=== PATIENT | female | born 1965 | race Caucasian/White ===

== ENCOUNTER 2021-01-31 18:23 | Emergency (ER) | payer BC ==
[~2021-01-31] VITALS: Ht 170.2 cm; Wt 85.9 kg
--- NOTE | 2021-01-31 18:30 | PHYS DOC ---
Past History Past Medical History: Hypertension General Adult HPI: HPI: ".. I ve had nose bleds before.. but this is a really good one.. I just can't get it to stop...'"".. It all started after I was blowing my nose.." Patient is a 55 year old female who presents with complaints of epistaxis primarily on right side. Patient however states blood is also coming out on left side of her nose after she has been pinching it to stop bleeding. Patient does have a history of previous nosebleeds. Patient has been taking aspirin for her chronic neck pain. Patient denies any history of coagulopathy or use of coagulopathic drugs. No history of [id number] herbal medicines. No hist ory of recent nasal trauma. Has had some upper respiratory congestion and cold symptoms recently. But no fever. No history of travel. No specific ill contacts. Patient does have elevated blood pressure on presentation and states that she has been told before that her pressure has been somewhat borderline. Patient normally follows with Dr. Castillo. Review of Systems: Review of Systems: Constitutional: Denies fever or chills Eyes: Denies change in visual acuity HENT: Complains of epistaxis Respiratory: Denies cough or shortness of breath Cardiovascular: Denies chest pain or edema GI: Denies abdominal pain, nausea, vomiting, bloody stools or diarrhea : Denies dysuria Musculoskeletal: Denies back pain or joint pain Integument: Denies rash Neurologic: Denies headache, focal weakness or sensory changes Endocrine: Denies polyuria or polydipsia Lymphatic: Denies swollen glands Psychiatric: Denies depression or anxiety Family History: Family History: Noncontributory to presentation Current Medications: Current Meds: See nursing for home meds Allergies: Allergies: Allergic to penicillins Physical Exam: PE: Constitutional: in acute distress, non-toxic appearance. [] HENT: Normocephalic, atraumatic, bilateral external ears normal, oropharynx moist, no oral exudates, nose active bleeding from [place] area on right naris. Does have bleeding down rectal pharynx. There is overflow bleeding to the left naris. Eyes: PERRLA, EOMI, conjunctiva normal, no discharge. [] Neck: Normal range of motion, no tenderness, supple, no stridor. [] Cardiovascular:Heart rate regular rhythm, no murmur [] Lungs & Thorax: Bilateral breath sounds equal apex with some scattered wheezes on auscultation [] Abdomen: Bowel sounds normal, soft, no tenderness, no masses, no pulsatile masses. [] Skin: Warm, dry, no erythema, no rash. [] No petechiae or excessive bruising appreciated Back: No tenderness, no CVA tenderness. [] Extremities: No tenderness, no cyanosis, no clubbing, ROM intact, no edema. Arthritic changes. Neurologic: Alert and oriented X 3, normal motor function, normal sensory funct ion, no focal deficits noted. [] Psychologic: Affect anxious,, judgement normal, mood normal. [] EKG: EKG: [] Radiology/Procedures: Radiology/Procedures: [] Heart Score: C/O Chest Pain: N/A Risk Factors: Risk Factors: DM, Current or recent (<one month) smoker, HTN, HLP, family history of CAD, obesity. Risk Scores: Score 0 - 3: 2.5% MACE over next 6 weeks - Discharge Home Score 4 - 6: 20.3% MACE over next 6 weeks - Admit for Clinical Observation Score 7 - 10: 72.7% MACE over next 6 weeks - Early Invasive Strategies Course & Med Decision Making: Course & Med Decision Making Pertinent Labs and Imaging studies reviewed. (See chart for details) Procedure note: Discussed options of treatment with patient. Had patient a clear excessive cough by blowing. Occasion of a 50-50 mix of Afrin and cocaine by MAD applicat or. Also application of bacitracin to right nare. Gentle pressure. Patient appeared to have good hemostasis over [place] area. Did reapply 1 dose of Afrin and cocaine by MAD. Patient monitored for additional 2 hours and no breakthrough bleeding noted. Patient also had application of clonidine 0.2 and clonidine patch for her accelerated hypertension. Patient declined packing at this time. Patient to apply small amount of Polysporin to each nare 4 times a day. Follow-up primary care. Patient to leave on the clonidine patch on until follow-up with Dr. Castillo. Patient avoid NSAIDs. May take Tylenol for pain. Patient issued a mixture of cocaine and Afrin with MAD applicator. Patient has breakthrough bleeding at home to reapply the mixture and hold direct pressure for 15 minutes by the clock. Release pressure to have rebleeding reapply a mixture x1. And hold pressure additional 15 minutes. If still bleeding after second course of direct pressure and MAD (mucosal applicator device), patient to return to the emergency apartment for nasal packing. Patient to not blow nose. Patient may sniff. Must follow-up. Patient return if any concerns. Impression: 1. Acute epistaxis 2. Accelerated HTN [] Dragon Disclaimer: Dragon Disclaimer: This electronic medical record was generated, in whole or in part, using a voice recognition dictation system. Departure Departure: Referrals: DOMINIC CASTILLO MD (PCP) Scripts Oxycodone HCl/Acetaminophen (Percocet 5-325 mg Tablet) 1 Each Tablet 1 TAB PO PRN QID PRN for PAIN MDD 4 Tablet(s) for 30 Days, #30 TAB 0 Refills Prov: MADDY CABRERA MD 01/31/21 Cephalexin (KEFLEX) 750 Mg Capsule 1 CAP PO TID for nasal packing for 7 Days, #21 CAP 0 Refills Prov: MADDY CABRERA MD 01/31/21 Dragon Disclaimer This chart was dictated in whole or in part using Voice Recognition software in a busy, high-work load, and often noisy Emergency Department environment. It may contain unintended and wholly unrecognized errors or omissions. MADDY CABRERA MD Jan 31, 2021 18:30
[2021-01-31] MEDS ORDERED: COCAINE 4% TOPICAL SOLUTION. TP ONE (18:45)
[2021-01-31] MEDS ORDERED: PHENYLEPHRINE 1% NASAL DROP 30ML BOTTLE. NS ONE (18:45)
[2021-01-31] MEDS ORDERED: CEPHALEXIN 250 MG CAPSULE PO ONE (18:45)
[2021-01-31] MEDS ORDERED: cloNIDine HCL 0.1 MG TABLET PO ONE (18:45)
[2021-01-31] MEDS ORDERED: cloNIDine TTS-2 1 PATCH PATCH TD ONE (18:45)
[2021-01-31] MEDS ORDERED: MUPIROCIN 2% TOPICAL OINTMENT 22GM TUBE. TP ONE (18:58)
[2021-01-31] MEDS ORDERED: OXYC-325 PO (19:05)
[2021-01-31] MEDS ORDERED: CEPH750C9 PO (19:05)
[2021-01-31 19:26] VITALS: BP 115/71
[2021-01-31] MEDS ORDERED: MUPIROCIN 2% TOPICAL OINTMENT 22GM TUBE. TP SCH (21:00)
== END 2021-01-31 20:45 | disposition home or self-care (01) ==
LOC: ER 18:23
DX: R04.0 Epistaxis (principal); I10 Essential (primary) hypertension; G89.29 Other chronic pain; Z88.0 Allergy status to penicillin
CPT/HCPCS: 99284